=== PATIENT | female | born 1970 | race Caucasian/White ===

== ENCOUNTER → 2019-09-19 08:21 | Outpatient (BNVA) | payer OTHER, SELFPAY | PROVIDERS: Family Provider Family Medicine; PCP Family Medicine; Visit Provider Obstetrics & Gynecology | DX: R87.618 Other abnormal cytological findings on specimens from cervix uteri (principal) | CPT/HCPCS: 88305 ==

== ENCOUNTER 2021-03-17 13:11 | Outpatient (CLI) | payer OTHER, SELFPAY ==
--- NOTE | 2021-03-17 13:16 | MM_ITS ---
WS: [id number] BILATERAL DIGITAL SCREENING MAMMOGRAPHY WITH CAD CLINICAL INFORMATION: SCREENING HISTORY: Screening mammogram. No current complaints. COMPARISON: TECHNIQUE: Bilateral CC and MLO views. FINDINGS: Scattered fibroglandular densities bilaterally. No suspicious focal mass, asymmetry, calcifications, or architectural distortion. No evidence of malignancy. A few incidental punctate calcifications MM/[id number] IMPRESSION: BI-RADS: 2-Benign FOLLOW UP: 1 Year Follow-up Recommend return to annual screening mammography.
== END 2021-03-17 13:12 | disposition home or self-care (01) ==
PROVIDERS: PCP Family Medicine; Visit Provider Family Medicine
DX: Z12.31 Encounter for screening mammogram for malignant neoplasm of breast (principal)
CPT/HCPCS: 77067

== ENCOUNTER 2022-03-21 09:34 | Outpatient (CLI) | payer OTHER, SELFPAY ==
--- NOTE | 2022-03-21 09:45 | MM_ITS ---
WS: [id number] BILATERAL SCREENING DIGITAL BREAST TOMOSYNTHESIS MAMMOGRAM WITH CAD HISTORY: SCREENING COMPARISON: 03/17/2021 and 05/13/2019 Bilateral CC and MLO views with tomosynthesis and synthetic mammography submitted. Computer aided det ection analyzed. Breast composition: There are scattered areas of fibroglandular density. No suspicious masses, microc alcifications or architectural distortion. MM/[id number] IMPRESSION: BI-RADS: 1-Negative FOLLOW UP: 1 Year Follow-up
== END 2022-03-21 09:35 | disposition home or self-care (01) ==
LOC: RAD 09:35
PROVIDERS: PCP Family Medicine; Visit Provider Family Medicine
DX: Z12.31 Encounter for screening mammogram for malignant neoplasm of breast (principal)
CPT/HCPCS: 77063; 77067

== ENCOUNTER 2023-03-30 10:35 | Outpatient (CLI) | payer OTHER, SELFPAY ==
--- NOTE | 2023-03-30 10:43 | MM_ITS ---
WS: [id number] Bilateral screening 3D tomosynthesis digital mammogram, 03/30/2023 Clinical Data: SCREENING Comparison: 03/21/2022, 03/17/2021, 05/13/2019, 08/08/2017, 04/07/2016, 03/14/2014, 12/20/2012, 12/06/2012, 08/23/2011. Findings: The breast parenchymal pattern shows heterogeneous density. No spiculated masses or clustered calcifi cations are seen. There are no secondary signs of carcinoma. MM/[place] [id number] Impression: 1. Negative bilateral mammogram unchanged. 2. Recommend annual screening mammograms. BIRADS: 1-Negative FOLLOW UP: 1 Year Follow-up The CAD photo checker and assembler was used.
== END 2023-03-30 10:36 | disposition home or self-care (01) ==
PROVIDERS: PCP Family Medicine; Visit Provider Family Medicine
DX: Z12.31 Encounter for screening mammogram for malignant neoplasm of breast (principal)
CPT/HCPCS: 77063; 77067

== ENCOUNTER 2024-04-11 08:51 | Outpatient (CLI) | payer OTHER, SELFPAY ==
--- NOTE | 2024-04-11 08:55 | MM_ITS ---
WS: [id number] BILATERAL SCREENING DIGITAL TOMOSYNTHESIS MAMMOGRAM WITH CAD HISTORY: SCREENING COMPARISON: None available. Bilateral CC and MLO views with tomosynthesis and synthetic mammography submitted. Computer aided det ection analyzed. Breast composition: There are scattered areas of fibroglandular density. No suspicious masses, microc alcifications or architectural distortion. Benign calcifications RIGHT breast. MM/[id number] IMPRESSION: BI-RADS: 2-Benign FOLLOW UP: 1 Year Follow-up
== END 2024-04-11 08:52 | disposition home or self-care (01) ==
LOC: RAD 08:51
PROVIDERS: PCP Family Medicine; Visit Provider Family Medicine
DX: Z12.31 Encounter for screening mammogram for malignant neoplasm of breast (principal)
CPT/HCPCS: 77063; 77067

== ENCOUNTER 2024-07-24 08:46 | Day surgery (SDC) | payer OTHER, SELFPAY ==
[2024-07-24 09:18] VITALS: BP 183/121; PULSE 93; RESP 18; TEMP 37.4; O2SAT 97; BMI 54.9
--- NOTE | 2024-07-24 09:22 | ANES.PREANE2 ---
Pre-Anesthetic Assessment Height/Weight: Height 1.63 m Operation Date: 07/24/24 10:00 Proposed Procedures p Colonoscopy - 79709,z12.11,g0105(Not Applicable) - William Carbone DO Familial anesthetic complications: None Was Beta Leyda taken within 24 hours: N/A Was Clonidine taken within 24 hours: N/A Social No alcohol and No tobacco Exam alert, oriented x 3, clear to auscultation bilaterally and regular rate & rhythm Airway Submandibular: within normal limits Cervical ROM: within normal limits Mallampati: Class III Dentition: full History/ROS No significant history except as noted and No significant complaints Pulmonary Asthma (Seasonal), Exertional Dyspnea and Sleep Apnea (Wears CPAP) CV/HEM Hypertension None reported Hepatic None reported GI IBS Hx diverticulosis Metabolic Diabetes Mellitus and Morbid Obesity [facility] [place] None reported Neuropsych Anxiety Anesthetic Plan ASA status: 3 Anesthesia: Anesthesia Evaluation, General and MAC Risk of > 500 ml blood loss (7ml/kg in children): No Medications/Allergies Home Medications Medication Instructions Recorded Confirmed Last Taken Type cetirizine 10 mg capsule (Zyrtec) 10 mg PO QDAY 09/13/19 07/24/24 07/23/24 History hydrochlorothiazide 25 mg tablet 25 mg PO QDAY 09/13/19 07/24/24 07/23/24 History losartan 50 mg tablet 50 mg PO QDAY 09/13/19 07/24/24 07/23/24 History potassium chloride 10 mEq 10 meq PO DAILY 03/01/22 07/24/24 07/23/24 History tablet,extended release blood-glucose sensor (FreeStyle #1 ea 05/06/24 05/06/24 Unknown History Haley 3 Sensor device) tirzepatide 2.5 mg/0.5 mL 2.5 mg SUBCUT .WEEKLY 05/06/24 07/24/24 3 Weeks Ago History subcutaneous pen injector ~07/01/24 (Mounjaro) Allergies Allergy/AdvReac Type Severity Reaction Status Date / Time ciprofloxacin [From Cipro] Allergy Joint Verified 07/22/24 10:38 Swelling [facility] Anesthesia Medical History Hypertension Sleep apnea Surgical History History of right knee surgery (~2009) Scope. Torn meniscus. [place], [place] History of laparotomy (~1997) Laparotomy with ovarian cystectomy. Benign. Family History Mother Colon cancer Heart disease Hypertension Father Heart disease Hypertension Social History Smoking and tobacco/nicotine status: never used tobacco/nicotine Alcohol intake: current Substance/Drug Use: never Data Anesthesia Cardiac Studies: No Data to Display
[2024-07-24 09:23] LABS: Glucose Point of Care 112 mg/dL (70-110)
[2024-07-24 09:25] LABS: OR HCG Qualitative Urine Negative (Negative)
[2024-07-24] MEDS: sodium chloride 0.9% 1,000 ML 30 ML IV (09:29)
[2024-07-24 10:09] LABS: Blood Urea Nitrogen 12 mg/dL (6-20); Calcium 9.7 mg/dL (8.5-10.5); Carbon Dioxide 24 mmol/L (22-29); Chloride 101 mmol/L (98-107); Creatinine Clr Calc Pharmacy 133.3448; Glomerular Filtration Rate 87.5 mL/min (90-130); Glucose 106 mg/dL (65-115); Osmolality Calculated 288 mOsm/kg (285-295); Sodium 139 mmol/L (136-145)
[2024-07-24 10:10] LABS: Anion Gap 17.6 (5-19); Potassium 3.6 mmol/L (3.5-5.1)
[2024-07-24 10:15] VITALS: BP 162/99; PULSE 90; RESP 18; O2SAT 97
--- NOTE | 2024-07-24 10:17 | PC.NURSE ---
manual blood pressure is 154/90
--- NOTE | 2024-07-24 10:33 | P.HP_ITS ---
Providers/Chief Complaint 2 Primary Care Provider: Nevaeh Lyons MD Chief Complaint: Z12.11 History of Present Illness Romina Cordova is a 53 year old female Review of Systems 2 General: Reports: 10 or more systems reviewed and unremarkable except in HPI and below Medications/Allergies Home Medications Medication Instructions Recorded Confirmed Last Taken Type cetirizine 10 mg capsule (Zyrtec) 10 mg PO QDAY 09/13/19 07/24/24 07/23/24 History hydrochlorothiazide 25 mg tablet 25 mg PO QDAY 09/13/19 07/24/24 07/23/24 History losartan 50 mg tablet 50 mg PO QDAY 09/13/19 07/24/24 07/23/24 History potassium chloride 10 mEq 10 meq PO DAILY 03/01/22 07/24/24 07/23/24 History tablet,extended release blood-glucose sensor (FreeStyle #1 ea 05/06/24 05/06/24 Unknown History Haley 3 Sensor device) tirzepatide 2.5 mg/0.5 mL 2.5 mg SUBCUT .WEEKLY 05/06/24 07/24/24 3 Weeks Ago History subcutaneous pen injector ~07/01/24 (Mounjaro) Allergies Allergy/AdvReac Type Severity Reaction Status Date / Time ciprofloxacin [From Cipro] Allergy Joint Verified 07/22/24 10:38 Swelling PFSH Acute 2 PFSH: Medical History (Updated 07/24/24 @ 10:34 by William Carbone DO) Hypertension Sleep apnea Surgical History (Updated 07/24/24 @ 10:34 by William Carbone DO) Hx of colonoscopy [id number] History of right knee surgery (~2009) Scope. Torn meniscus. [place] History of laparotomy (~1997) Laparotomy with ovarian cystectomy. Benign. Family History Mother Colon cancer Heart disease Hypertension Father Heart disease Hypertension Social History Smoking and tobacco/nicotine status: never used tobacco/nicotine Alcohol intake: current Substance/Drug Use: never Vitals/I&O/Wt Last Vital Signs Temp 99.3 F 07/24/24 09:18 Pulse 90 07/24/24 10:15 Resp 18 07/24/24 10:15 BP 162/99 11/27/24 10:15 Pulse Ox 97 07/24/24 10:15 O2 Del Method Room Air 07/24/24 10:15 Weight last 48 hrs Weight 320 lb Data 07/24/24 09:29 A&P Assessment and plan (1) Colon cancer screening: Plan Colonoscopy Attestations 2 Medical Necessity Statement*: Home Coding Level of Care Code Acute Code for Chg Fwd Diagnoses Colon cancer screening Z12.11
[2024-07-24 10:55] VITALS: BP 142/91; PULSE 71; RESP 12; TEMP 36.3; O2SAT 97
[2024-07-24 11:07] VITALS: BP 135/91; PULSE 68; RESP 14; O2SAT 94
[2024-07-24 11:14] VITALS: BP 157/102; PULSE 67; RESP 16; O2SAT 95
--- NOTE | 2024-07-24 11:30 | ANE.PACU2 ---
Inpatient post-anesthesia follow up: Airway intact: Yes Vital signs: Temperature 97.4 F Pulse Rate 67 Respiratory Rate 16 Blood Pressure 157/102 Pulse Oximetry 95 Oxygen Delivery Me thod Room Air Oxygen Flow Rate Fraction of Inspir ed Oxygen Hydration adequate: Yes Nausea and vomiting: No Pain level: 1 Mental status: Baseline
== END 2024-07-24 11:34 | disposition home or self-care (01) ==
PROVIDERS: Anesthesiology; PCP Family Medicine; Visit Provider Surgery
PROC: 0DJD8ZZ Inspection of Lower Intestinal Tract, Via Natural or Artificial Opening Endoscopic (ICD-10-PCS; CPT 45378; principal; 2024-07-24 10:00)
DX: Z12.11 Encounter for screening for malignant neoplasm of colon (principal); K57.30 Diverticulosis of large intestine without perforation or abscess without bleeding; K51.40 Inflammatory polyps of colon without complications; I10 Essential (primary) hypertension; G47.30 Sleep apnea, unspecified; J45.909 Unspecified asthma, uncomplicated; E11.9 Type 2 diabetes mellitus without complications; E66.01 Morbid (severe) obesity due to excess calories; Z68.43 Body mass index [BMI] 50.0-59.9, adult
CPT/HCPCS: 36415; 36416; 45385; 80048; 81025; 82962; 88305; J2704; J7030